=== PATIENT | female | born 1965 | race Caucasian/White ===

== ENCOUNTER → 2017-01-29 | Outpatient (CLI) | payer OTHER ==
[~2017-01-29] MED LIST: MULT-506 PO
--- NOTE | 2017-01-30 16:07 | MAMMOGRAPHY REPORT ---
BILATERAL DIGITAL SCREENING MAMMOGRAM TOMOSYNTHESIS WITH CAD: 01/29/2017 CLINICAL HISTORY: Routine screening examination. TECHNIQUE: Breast tomosynthesis in addition to standard 2D mammography was performed. Current study was also evaluated with a Computer Aided Detection (CAD) system. COMPARISON: Comparison is made to exams dated: 10/07/2015 mammogram, 09/17/2015 mammogram, 04/28/2014 m ammogram, 04/24/2013 mammogram, 11/04/2012 ultrasound, and 11/04/2012 mammogram - [facility] enter. BREAST COMPOSITION: There are scattered areas of fibroglandular density in both breasts. FINDINGS: The parenchymal pattern is similar compared to prior mammograms, with stable focal asymmet ry in the 12:00 posterior right breast. No developing mass, architectural distortion or cluster of s uspicious microcalcifications is seen in either breast. IMPRESSION: ACR BI-RADS CATEGORY 2: BENIGN There is no mammographic evidence of malignancy. A 1 year screening mammogram is recommended. The pa tient will receive written notification of the results. Approximately 10% of breast cancers are not detected with mammography. A negative mammographic report should not delay biopsy if a clinically suggestive mass is present. Katherine Odell M.D. ay/:01/29/2017 15:33:08 Floor Steward/Stewardess: Clarissa OCAMPO)(M), [facility] letter sent: Normal 1/2 BI-RADS Code: ACR BI-RADS Category 2: Benign
== END | disposition home or self-care (01) ==
LOC: C.MAMM 12:25
PROVIDERS: ATTEND Family Medicine
DX: Z12.31 Encounter for screening mammogram for malignant neoplasm of breast (principal)

== ENCOUNTER → 2018-01-14 | Outpatient (CLI) | payer OTHER ==
[2018-01-14 09:27] LABS: HEMATOCRIT 40.1 % (37-47); HEMOGLOBIN 13.9 g/dL (12.0-16.0); MEAN CELL VOLUME 97.1 fL (80-100); MEAN CORPUSCULAR HEMOGLOBIN 33.7 pg (25-34); MEAN CORPUSCULAR HGB CONC 34.7 g/dl (32-36); MEAN PLATELET VOLUME 11.2 fL (7.4-10.4); PLATELET COUNT 203 K/uL (130-400); RED CELL DISTRIBUTION WIDTH CV 12.4 % (11.5-14.5); RED CELL DISTRIBUTION WIDTH SD 43.7 fL (36.4-46.3); WHITE BLOOD COUNT 6.28 K/uL (4.8-10.8)
[2018-01-14 09:35] LABS: BLOOD UREA NITROGEN 19 mg/dl (7-18); CALCIUM 8.5 mg/dl (8.5-10.1); CARBON DIOXIDE 26 mmol/L (21-32); CHOLESTEROL 140 mg/dl (0-200); CREATININE 0.99 mg/dl (0.60-1.20); GLUCOSE 91 mg/dl (70-99); LDL CHOLESTEROL CALCULATED 61 mg/dl; SODIUM 138 mmol/L (136-145)
== END | disposition home or self-care (01) ==
LOC: C.LAB 07:43
PROVIDERS: ATTEND Family Medicine
DX: Z00.00 Encounter for general adult medical examination without abnormal findings (principal)

== ENCOUNTER 2023-01-29 06:27 | Observation (INO) ==
--- NOTE | 2022-12-11 14:10 | PAT Medication Instructions ---
Medication Instructions Date of Service December 11, 2022 Home Medications Medication Instructions Recorded propranolol 20 mg tablet 20 mg PO TID #270 tabs 11/30/22 Magnesium 1 tab PO HS calcium citrate 250 mg calcium-vitamin D3 5 mcg (200 unit) tablet (Citracal Regular) 1 tab PO QAM propranolol 20 mg tablet 20 mg PO TID ascorbic acid (vitamin C) 500 mg tablet (Vitamin C) 500 mg PO QAM cyanocobalamin (vitamin B-12) 500 mcg tablet 500 mcg PO QAM ibuprofen 200 mg tablet (Advil) 400 mg PO Q4H PRN ASK your surgeon for instructions ibuprofen 200 mg tablet (Advil) 400 mg PO Q4H PRN DO NOT take the morning of surgery calcium citrate 250 mg calcium-vitamin D3 5 mcg (200 unit) tablet (Citracal Regular) 1 tab PO QAM ascorbic acid (vitamin C) 500 mg tablet (Vitamin C) 500 mg PO QAM cyanocobalamin (vitamin B-12) 500 mcg tablet 500 mcg PO QAM Take morning of surgery With a small sip of water, OTHERWISE NOTHING TO EAT OR DRINK AFTER MIDNIGHT: propranolol 20 mg tablet 20 mg PO TID Take evening before surgery Magnesium 1 tab PO HS propranolol 20 mg tablet 20 mg PO TID Other Notes If you have any questions please call us at [phone] or [phone] or [phone] or [phone]
--- NOTE | 2022-12-15 11:55 | Anesthesiology Consultation ---
Date of Service December 15, 2022 Assessment & Plan (1) Encounter for pre-operative examination: - TSH and T4 resulted (T4 WNL, reduced TSH): workload note to Matt Walsh for continuity of care. - Case discussed in detail including patient reported symptoms above with Dr. Carballo, she advised patient is acceptable to proceed with surgery as scheduled at [facility] pending anesthesiologist evaluation am DOS and with plan for continuity of care workload note being sent to [facility]. - endocrinology 12/08/22 [place]: "...First seen 2 weeks ago, acute thyroiditis...In very late October developed diarrhea. That resolved but recurred, and then again resolved. By October 06 she was too tired to do much, and has been working from home since that time. Severe fatigue has been dominant as have low-grade fevers. High-dose Advil has been helpful. In addition she developed shortness of breath with any exertion, tachycardia with any exertion, 15 pound weight loss, insomnia. Last but not least primarily right thyroid pain radiating to the right jaw and ear, occasional left thyroid pain as well. On 11/21/22 TSH 0, free T4 3.3 mg/dL. CBC and chemistry profile relatively unremarkable. She had stool cultures, negative. Sheri-Sinclair virus testing consistent with remote infection. On 11/30/22 TSH still 0, free T4 now down to 2.4 mg/dL, free T3 still very high at 6.2 pg/mL. In addition TSI negative, but normal sed rate...Feeling much better...At night still wakes up with tachycardia. Therefore still hyperthyroid. Discussed the fact that she will likely become hypothyroid. Check free T4 and TSH around December 15. At the end of January she is scheduled for knee replacement surgery, it would likely not be necessary to postpone that..." - Outpatient joint assessment: Patient is currently scheduled for inpatient pathway. If re-evaluated pending system levels during current pandemic/surgeon requests outpatient pathway, patient states she prefers to stay overnight. Chart Review Chart Review: Acceptable Risk for Surgery and Patient seen in Pre Admission Testing Teaching & Discussion Pre-Anesthesia Teaching/Discussion Notes: Instructed NPO after midnight before surgery, except medications with 15 cc of water. Medication instructions provided according to the PAT guidelines. History Surgery Operation Date: 01/29/23 07:00 Proposed Procedures p Left Total Knee Arthroplasty - Shaun Perez MD Height/Weight Height: 5 ft 7.5 in Weight: 84.6 kg Allergies Allergy/AdvReac Type Severity Reaction Status Date / Time latex Allergy Unknown HIVES Verified 12/11/22 08:18 Penicillins Allergy Unknown Hives Verified 12/11/22 08:18 ropinirole [From Requip] AdvReac Severe Diarrhea Verified 12/11/22 08:18 Medications Home Medications Medication Instructions Recorded Confirmed Last Taken Magnesium 1 tab PO HS 09/10/18 12/11/22 09/16/18 08:00 calcium citrate 250 mg 1 tab PO QAM 09/10/18 12/11/22 09/16/18 08:00 calcium-vitamin D3 5 mcg (200 unit) tablet (Citracal Regular) propranolol 20 mg tablet 20 mg PO TID #270 tabs 11/30/22 12/11/22 Unknown ascorbic acid (vitamin C) 500 mg 500 mg PO QAM 12/11/22 12/11/22 Unknown tablet (Vitamin C) cyanocobalamin (vitamin B-12) 500 500 mcg PO QAM 12/11/22 12/11/22 Unknown mcg tablet ibuprofen 200 mg tablet (Advil) 400 mg PO Q4H PRN Pain 12/11/22 12/11/22 Unknown Wheeled Walker #1 ea 12/15/22 12/15/22 Unknown Past Medical History Medical History (Updated 12/15/22 @ 11:57 by Anaid Alcantar PA-C) History of COVID-19 x3, most recent Jan 2022 > never hospitalized -symptoms resolved Hyperthyroidism Palpitations HR changes often, can be 60-120 even at rest / propranolol for this / started when the viral disease symptoms started-seeing [facility] thyroiditis, associated slight left sided chest discomfort at night Viral disease of unknown cause, has been on going for approx 6 weeks, thyroiditis Patient denies h/o stroke, seizures, heart attack, heart failure, DM, HTN, blood clots or blood transfusions. Exercise / Class Metabolic Activity II 4-5 Yardwork/Stairs/Walk up hill (denies chest discomfort or shortness of breath with 1 FOS; notes occasional left sided chest discomfort associated with palpitations since thyroiditis, notes improvement on beta giovany, otherwise no change in symptoms) Past Family History Family History Other Adopted Past Surgical History Surgical History H/O foot surgery LEFT FOOT CYST REMOVAL History of arthroscopy bilat knees History of cholecystectomy History of colonoscopy Past Anesthesia History No Hx of Anesthesia Complications FHX unknown. History of PONV No Hx of PONV and No Hx of Motion Sickness Social History Smoking Status: Former smoker Do You Dip or Chew Tobacco: No Smoking End Date: 2006 Hx Alcohol Use: Yes Alcohol type: wine alcohol intake frequency: 0-2 drinks per day Alcohol Intake Frequency Comment: 1 per day Hx Substance Use: No substance use type: does not use Review of Systems Patient denies shortness of breath, dyspnea on exertion, snoring, witnessed apneas, reflux, fever, chills, cough, or wheezing. Physical Exam Vital Signs Vitals BP 111/75 P 62 TEMP 97.8 SP02 97% on RA RESP 18 Physical Full cervical extension range of motion without pain TMD 3.5 finger breadths Mallampati Score 2 Dentition: two permanent bridges; denies chipped or loose teeth, caps/crowns, or implants Lungs: normal respiratory effort. Good air movement, clear throughout to auscultation, no adventitious breath sounds Cardiac: regular rate and rhythm, no murmurs noted Carotid arteries: negative bruit bilat Lab Results Anesthesia Preop Results Results Anesthesia Widget: WBC 7.92 K/ul (4.8-10.8) 12/15/22 Hgb 13.9 g/dl (12.0-16.0) 12/15/22 Hct 39.8 % (37.0-47.0) 12/15/22 Plt 285 K/uL (130-400) 12/15/22 Na 140 mmol/L (136-145) 12/15/22 K 4.0 mmol/L (3.5-5.1) 12/15/22 Cl 106 mmol/L (98-107) 12/15/22 CO2 28 mmol/L (21-32) 12/15/22 BUN 13 mg/dl (6-23) 12/15/22 Creat 0.80 mg/dl (0.6-1.2) 12/15/22 Glucose Level 101 mg/dl (70-99(Fasting)) H 12/15/22 PT 11.2 Seconds (9.0-12.0) 12/15/22 PTT 24.2 Seconds (21.0-31.0) 12/15/22 INR 1.0 (0.9-1.1) 12/15/22 TSH < 0.010 uIu/ml (0.300-4.500) L 12/15/22 Free T4 1.06 ng/dl (0.61-1.60) 12/15/22 HA1c 5.4 % (4.5-5.6) 11/09/22 Blood Type A Negative 12/15/22 Antibody Screen NEGATIVE 12/15/22 Testing Electrocardiogram Date: 12/15/22 NSR, rate 62 bpm Nonspecific T wave abnormality Chest X-Ray Date: 12/15/22 No acute process COVID-19 Risk Screen Screening Information COVID-19 Screen Date: 12/15/22 Exposure 21 Days Family/Household +COVID Last 21 Days: No Exposure 10 Days Any COVID Exposure Last 10 Days: No Symptoms Last 10 Days Experienced COVID Sx Last 10 Days: No + COVID 0-90 Days COVID + in Last 0-90 Days: No
--- NOTE | 2023-01-25 14:25 | History & Physical Report ---
Date of Service January 25, 2023 Assessment & Plan (1) Osteoarthritis of left knee: 57-year-old female with advanced left knee tricompartment DJD. She has failed conservative treatment. She would like to proceed with knee replacement. She was previously scheduled for right knee replacement but had to put it on hold due to some personal issues. Working to proceed with left total knee replacement for the risks Mente this procedure explained the patient include but not limited to DVT PE infection neurological and vascular bleeding palm pain limb range of motion test is fairly of symptoms incomplete relief of symptoms need for further surgery in the future. The patient understands and desires to proceed. Informed consent is obtained. She is a plan on stay in the hospital overnight. Likely discharge postop day 1 after therapy. History of Present Illness Chief Complaint: . Left knee pain. Primary Care Provider: Trung Cagle DO . Patient is a 57-year-old female who presents for surgical treatment of her left knee. She has been a long-term patient of our practice and used to work at [employer] but now works for [employer]. Got a long history of knee problems and had a left knee scope with Dr. Encinas back in 2014 and the right one done 2019. The right knee seem to get better but the left knee really never got any better. She been through extensive conservative treatment including steroid shots and viscosupplementation which become less successful over time. Describes global pain. The more she is up on it the more it hurts. She now would like to have her left knee replaced. She was actually scheduled for knee replaced about a year ago but had to put this on hold for personal reasons. Of note, the patient does have a relatively recent history of some thyroiditis followed by Dr. Walsh. Allergies Allergy/AdvReac Type Severity Reaction Status Date / Time latex Allergy Unknown HIVES Verified 12/11/22 08:18 Penicillins Allergy Unknown Hives Verified 12/11/22 08:18 ropinirole [From Requip] AdvReac Severe Diarrhea Verified 12/11/22 08:18 Home Medications Medication Instructions Recorded Confirmed Type Magnesium 1 tab PO HS 09/10/18 12/11/22 History calcium citrate 250 mg 1 tab PO QAM 09/10/18 12/11/22 History calcium-vitamin D3 5 mcg (200 unit) tablet (Citracal Regular) propranolol 20 mg tablet 20 mg PO TID #270 tabs 11/30/22 12/11/22 Rx ascorbic acid (vitamin C) 500 mg 500 mg PO QAM 12/11/22 12/11/22 History tablet (Vitamin C) cyanocobalamin (vitamin B-12) 500 500 mcg PO QAM 12/11/22 12/11/22 History mcg tablet ibuprofen 200 mg tablet (Advil) 400 mg PO Q4H PRN Pain 12/11/22 12/11/22 History Wheeled Walker #1 ea 12/15/22 12/15/22 Rx diclofenac sodium 75 mg 75 mg PO BID PRN pain #60 tabs 12/19/22 Rx tablet,delayed release Past Med/Surg History Medical History History of COVID-19 x3, most recent Jan 2022 > never hospitalized -symptoms resolved Hyperthyroidism Palpitations HR changes often, can be 60-120 even at rest / propranolol for this / started when the viral disease symptoms started-seeing [facility] thyroiditis, associated slight left sided chest discomfort at night Viral disease of unknown cause, has been on going for approx 6 weeks, thyroiditis Surgical History H/O foot surgery LEFT FOOT CYST REMOVAL History of arthroscopy bilat knees History of cholecystectomy History of colonoscopy Family History Other Adopted Social History Smoking Status: Former smoker Second Hand Exposure: No; Do You Dip or Chew Tobacco: No; Hx Alcohol Use: Yes Alcohol type: wine Hx Substance Use: No Preferred Language: Portuguese Communication Ability: Effective Manager Code Required: No Beliefs That Will Affect Care: None Current Living Situation: Spouse Feels Safe at Home: Yes Assistive Devices: None Review of Systems All systems reviewed & are unremarkable except as noted in HPI & below. Physical Exam . Physical examination reveals a pleasant healthy appearing middle-aged female. Her HEENT exam is benign. Neck supple no lymphadenopathy lungs good a uscultation. Heart is regular rate and rhythm. Abdomen soft nontender nondistended extremities grossly neuro vas intact except as follows. Examination of the left knee reveals patient walks independently. Fairly neutral alignment to her knee. Small to moderate-sized knee joint effusion. Range of motion is 5 degrees short of full extension to 120 degrees of flexion. There is no instability. No pain with hip motion. Constitutional WD/WN, vitals as above Respiratory normal respiratory effort, lungs clear to auscultation Cardiovascular RRR, no murmur, no edema Gastrointestinal (Abdomen) normal bowel sounds, soft, nontender, no hepatosplenomegaly Results & Data Results & Data Laboratory Results . Diagnostic Findings . X-rays of the left knee from October 03, 20192002 were reviewed. Shows advanced left knee tricompartment DJD. She got near complete loss of medial joint space. She has a little bit of tibiofemoral subluxation. She got some lateral compartment disease as well. [facility] Care Time/CCT Total # of Minutes Spent Total Time Spent with Patient: Total time spent is greater than 50% in coordination of care (as documented) at patient's floor/unit and/or counseling patient: Coding Level of Care Code None Diagnoses Osteoarthritis of left knee M17.12
[~2023-01-29 06:27] MED LIST changes: +ACETAMINOPHEN 500 MG TAB PO SCH; +BUPIVACAINE LIPOSOME/PF 266 MG, BUPIVACAINE/EPINEPHRINE 50 ML, SODIUM CHLORIDE 0.9% PF ... INFIL SCH; +CeleBREX 200 MG CAP PO SCH; +FAMOTIDINE 20 MG TAB PO SCH; +LR 15ML/HR IV SCH; +LR 500ML BOLUS, THEN 15ML/HR IV SCH; +METOCLOPRAMIDE HCL 10 MG TABLET PO SCH; -MULT-506 PO; +SODIUM CHLORIDE 0.9% 1,000 ML IV SCH; +Scopolamine 1 MG TDSY TD SCH; +TRANEXAMIC ACID 1,000 MG **IV Intra-op IV SCH; +ceFAZolin 2000MG 2,000 MG/15 ML SYR IV SCH; +dexAMETHasone**PF** 10 MG/ML VIAL IV SCH
[2023-01-29] MEDS ORDERED: ROPIVACAINE 0.5% 5 MG/ML 30 ML VIAL ONE (06:33)
[2023-01-29] MEDS ORDERED: EPINEPHrine INJ 1 MG/ML AMP ONE (06:33)
[2023-01-29] MEDS ORDERED: BUPIVACAINE 0.5 % 5 MG/1 ML PF 10ML VIAL ONE (06:33)
--- NOTE | 2023-01-29 06:52 | History & Physical Bridge Note ---
Date of Service January 29, 2023 History & Physical Bridge Note I have examined the patient, reviewed the History & Physical and in the interval since the performance of the History & Physical I have noted the following changes of clinical significance: no changes noted
[2023-01-29] MEDS ORDERED: MIDAZOLAM HCL 1 MG/ML 2ML VIAL ONE ×2 (07:28→09:26)
[2023-01-29] MEDS ORDERED: fentaNYL citrate PF 100 MCG/2 ML VIAL ONE (07:29)
[2023-01-29] MEDS ORDERED: BUPIVACAINE/EPINEPHRINE 0.25% 1:200,000 30 ML VIAL ONE (08:49)
[2023-01-29] MEDS ORDERED: SODIUM CHLORIDE 0.9% PF 50 ML VIAL ONE (08:49)
[2023-01-29] MEDS ORDERED: BUPIVACAINE LIPOSOME 1.3% 266 MG/20 ML VIAL ONE (08:49)
[2023-01-29] MEDS ORDERED: PROPOFOL IV EMULSION 10 MG/ML 20 ML VIAL IV ONE (09:02)
--- NOTE | 2023-01-29 10:39 | Operative Report ---
[facility] Post Operative Report Pre & Post Diagnosis Operation Date: 01/29/23 08:40 Pre-Op Diagnosis: Left Knee Degenerative Joint Disease Post-Op Diagnosis: Left Knee Degenerative Joint Disease I identified the patient and participated in the time-out.: Yes Procedure Operation Date: 01/29/23 08:40 Actual Procedures p Left Total Knee Arthroplasty(Left) - Shaun Perez MD Surgeon Shaun Perez MD Rn Progressive Care Jordan Swenson PA-C Estimated Blood Loss 50 Findings Consistent with Post-Op Diagnosis Operative findings were advanced left knee tricompartment DJD. She had extensive grade 4 idje-ht-soap disease in all 3 compartments. Fairly significant effusion without blood-tinged to it. Osteophytes in all 3 compartments. Specimens Left knee sent for pathology Anesthesia Type Spinal MAC Complications none Disposition Accompanied Patient To Recovery: No Indications Patient is a 57-year-old very active female has had a long history of knee problems. She is under went both knee arthroscopies in the past. She has been through extensive conservative treatment for arthritis over the years which became less successful. She was actually scheduled for knee replacement about a year ago but had to cancel for personal reasons. She now presents for surgical treatment. Description of Procedure Operative implants consist of: 1 Biomet Vanguard size 65 left posterior stabilized femoral component. 2. Biomet size 71 tibial tray. 3. 12 mm posterior stabilized polyethylene insert. 4. 28 x 8 all poly patella. The patient was taken the operating, identified, placed on the operating table supine position but all contractors were properly padded. IV antibiotic 5 by anesthesia team. Spinal anesthetic and adductor canal block had provided in the holding area. Bell catheter was placed in sterile fashion to the left thigh tent was then placed in left lower extremities and prepped and draped in usual sterile fashion. The left leg was elevated exsanguinated with use of an Esmarch and the tourniquet was placed at 300 mmHg. An anterior posterior left knee was then performed to longitudinal incision centered over the patella. Sharp dissection was carried through subcutaneous tissue down the extensor mechanism. A medial parapatellar arthrotomy incision was made. Some subperiosteal dissection was carried out medially. The fat pad was resected from Neath patella tendon. Lateral patellofemoral ligament was released. Patella subluxated laterally and the knee was flexed. The osteophytes taken on distal femur. The ACL and PCL were then released from distal femur the tibia subluxated anteriorly. The external tibial alignment jig was then placed in the interface the tibia and adjusted 14 mm medially. Proximal tibial cut was made remove about a millimeter or 2 of bone from most deficient aspect medial tibial plateau. Some osteophytes taken off medially. The tibia was sized to a size 71. Attention drawn the femur. The distal femur examined the sharp drop with intramedullary canal was suction. A left 5 degree valgus cutting guide was placed. Distal femoral cutting block was pinned in place. Distal femoral cut was made to take an additional 3 mm of bone off distal femur. The femur was then sized to a size 65. The AP cutting block was pinned parallel to the epicondylar axis which was 4 degrees of external rotation. The anterior cut, anterior chamfer, posterior cut, posterior chamfer cuts were made. The box cutting guide was placed in a just slight lateral and the box cut was made. The knee was flexed. The remnants of the medial and lateral menisci were excised. The osteophytes were taken off the posterior aspect the femur. A trial femoral component was placed. The tibial tray was pinned in maximum external rotation and the drill and stem punch were used to create defect in proximal tibia for the tibial tray. The knee was then trialed and the 12 mm insert fit most appropriately. Attention drawn the patella. The patella was cleaned of all soft tissues. Patella thickness measured 22 mm in thickness was cut down to 13. It was sized to a size 28 patella. The lug holes were drilled for the 28 patella. The lateral osteophytes removed. Patella button was placed. Knee was taken through range of motion patella tracked nicely with no thumbs test. Attention drawn to placing the permanent components. All trial components were removed. Bone plug was placed in the distal femur limit blood loss. Double batch Palacos G cement was mixed. Biomet Mixbookguard size 65 left posterior stabilized femoral component, size 71 tibial tray, a 12 mm post stabilized polyethylene insert, and 28 x 8 all Paller patella then cemented in place. Knee was brought out into full extension till cement hardened. Final cement check was then performed. Pericapsular tissues were injected with a total of 100 cc of combination of 20 cc of Exparel, 30 cc normal saline, 50 cc of quarter percent Marcaine with epinephrine. Patient did receive 1 g tranexamic acid. The tourniquet was then let down for final tourniquet time 53 minutes. Hemostasis assured use electrocautery. Extensor mechanism then closed with combination 1 PDS suture #1 Vicryl suture in a [id number] fashion. Extensor mechanism checked found to be intact the subcutaneous tissues then closed with 2 Dexon suture in a buried interrupted fashion skin was closed skin kam. Leg was then cleaned and dried and sterile dressed with Xeroform, 4 fours, sterile cast padding, Hernan bandage were applied. Patient then transferred to the recovery room in stable condition. Patient tolerated procedure well no complications. Jordan Swenson, my physician education assistant, was present for the entire procedure. His assistance was essential and required for appropriate patient positioning, prepping and draping, surgical exposure, performing the technical details of the operation, placement the implants, closure of the wound, and placement of the sterile bandage. I attest to the content of the Intraoperative Record and any orders documented therein. Any exceptions are noted below.
--- NOTE | 2023-01-29 10:54 | XRay Report ---
TWO VIEWS LEFT KNEE CLINICAL HISTORY: Postoperative examination. FINDINGS: AP and crosstable lateral portable views of the left knee are obtained. A left knee arthrop lasty is in near anatomic alignment. There has been undersurface remodeling of the patella. No acute fracture is seen. There are expected postoperative changes around the knee including skin clips, soft tissue edema, and subcutaneous gas. IMPRESSION: Expected postoperative changes status post left knee arthroplasty. No acute fracture is s een. ACT 112: Negative or not required by law. Electronically signed by: Deacon Alvarado M.D. 01/29/2023 10:53 AM
[2023-01-29] MEDS ORDERED: ePHEDrine sulfate 50 MG/ML AMP IV PRN (11:10)
[2023-01-29] MEDS ORDERED: ATROPINE SULFATE 0.1 MG/ML 10ML SYR IV PRN (11:10)
[2023-01-29] MEDS ORDERED: bisacodyL 10 MG SUPP PR PRN (11:46)
[2023-01-29] MEDS ORDERED: ONDANSETRON INJ 2 MG/ML 2 ML VIAL IV PRN (11:46)
[2023-01-29] MEDS ORDERED: MAGNESIUM HYDROXIDE SUSP 30 ML UDC PO PRN (11:46)
[2023-01-29] MEDS ORDERED: NALOXONE HCL 0.4 MG/1 ML VIAL/CARP IV PRN (11:46)
[2023-01-29] MEDS ORDERED: ALUMINUM/MAGNESIUM SUSP 30 ML UDC PO PRN (11:46)
[2023-01-29] MEDS ORDERED: HYDROmorphone INJ 0.5 MG/0.5 ML SYR IV PRN (11:46)
[2023-01-29] MEDS ORDERED: METOCLOPRAMIDE HCL INJ 5 MG/ML 2 ML VIAL IV PRN (11:46)
[2023-01-29] MEDS ORDERED: diphenhydrAMINE Capsule 25 MG CAP PO PRN (11:46)
--- NOTE | 2023-01-29 11:58 | Anesthesiology Progress Note ---
Date of Service January 29, 2023 Anesthesia Post Procedure Vital Signs Vital Signs: Temp Pulse Pulse Resp BP Pulse Ox O2 Del Method 01/29/23 11:40 36.5 C 67 16 120/81 100 Room Air 01/29/23 11:30 72 16 138/78 99 Room Air 01/29/23 11:20 36.4 C L 73 15 141/91 H 99 Room Air 01/29/23 11:10 73 15 120/83 99 Room Air 01/29/23 11:00 63 16 128/78 100 Room Air 01/29/23 10:50 74 16 131/51 L 100 Room Air 01/29/23 10:40 91 H 18 121/79 100 Room Air 01/29/23 10:34 36.1 C L 97 H 14 121/68 98 Oxymask 01/29/23 06:52 36.9 C 82 20 144/95 H 98 Room Air O2 Flow Rate 01/29/23 11:40 01/29/23 11:30 01/29/23 11:20 01/29/23 11:10 01/29/23 11:00 01/29/23 10:50 01/29/23 10:40 01/29/23 10:34 6 01/29/23 06:52 Pain Intensity Left Knee: Pain Intensity: 5 Transfer of Care Handoff Completed per policy Notes Mental Status: alert / awake / arousable Patient Amnestic to Procedure: Yes Nausea / Vomiting: adequately controlled Pain: adequately controlled Airway Patency, RR, SpO2: stable & adequate BP & HR: stable & adequate Hydration State: stable & adequate Neuraxial Anesthesia: was administered and sensory block is resolving Anesthetic Complications: no major complications apparent
[2023-01-29] MEDS: KETOROLAC 30 MG/ML VIAL IV SCH ×3 (12:12→23:38)
[2023-01-29] MEDS: SODIUM CHLORIDE 0.9% 1000ML 1,000 ML IV SCH ×2 (12:12→21:49)
[2023-01-29] MEDS: ACETAMINOPHEN 500 MG TAB PO SCH ×2 (14:05→19:43)
[2023-01-29] MEDS: oxyCODONE HCL IR 5 MG TAB (IMMEDIATE RELEASE) PO PRN ×2 (14:55→17:04)
[2023-01-29] MEDS: Scopolamine CHECK PATCH PLACEMENT SCH ×2 (14:56→23:38)
[2023-01-29] MEDS ORDERED: TRANEXAMIC ACID / 0.7% NACL 1,000 MG/100 ML BAG IV SCH (16:30)
[2023-01-29] MEDS: ceFAZolin 2000MG 2,000 MG/15 ML SYR IV SCH (17:11)
[2023-01-29] MEDS: DOCUSATE SODIUM 100 MG CAP PO SCH (19:43)
[2023-01-29] MEDS: ASPIRIN 81 MG ECTAB PO SCH (19:44)
[2023-01-29] MEDS: SENNA 8.6 MG TAB PO SCH (19:45)
[2023-01-29] MEDS ORDERED: SENNA 8.6 MG TAB PO SCH (21:00)
[2023-01-29] MEDS ORDERED: MAGNESIUM OXIDE 400 MG TAB PO SCH (21:00)
[2023-01-30] MEDS: ceFAZolin 2000MG 2,000 MG/15 ML SYR IV SCH (02:06)
[2023-01-30] MEDS: KETOROLAC 30 MG/ML VIAL IV SCH (05:16)
[2023-01-30 06:20] LABS: Hematocrit (blood only) 36.5 % (37.0-47.0); Hemoglobin 12.6 g/dl (12.0-16.0); Mean Corpuscular Hemoglobin 32.1 pg (25.0-34.0); Mean Corpuscular Hgb Conc 34.5 g/dL (32.0-36.0); Mean Corpuscular Volume 92.9 fL (80.0-100.0); Mean Platelet Volume 10.9 fL (9.4-12.4); Platelet Count 227 K/uL (130-400); RDW Coefficient of Variation 13.3 % (11.5-14.5); RDW Standard Deviation 45.5 fL (36.4-46.3); Red Blood Count 3.93 M/uL (4.20-5.40)
[2023-01-30 06:32] LABS: BUN Creatinine Ratio 14.7 (10-20); Est GFR (African American) 77.1 ml/min; Est GFR (Non-African American) 66.5 ml/min; Potassium 3.5 mmol/L (3.5-5.1)
[2023-01-30] MEDS ORDERED: dexAMETHasone 10 MG in SYRINGE 0 ML IV SCH (08:00)
[2023-01-30 08:08] VITALS: BP 148/92; PULSE 74; TEMP 98.4; O2SAT 98
[2023-01-30] MEDS: oxyCODONE HCL IR 5 MG TAB (IMMEDIATE RELEASE) PO PRN (08:15)
[2023-01-30] MEDS: Scopolamine CHECK PATCH PLACEMENT SCH (08:17)
[2023-01-30] MEDS: ACETAMINOPHEN 500 MG TAB PO SCH (08:20)
[2023-01-30] MEDS: SENNA 8.6 MG TAB PO SCH (08:21)
[2023-01-30] MEDS: ASPIRIN 81 MG ECTAB PO SCH (08:22)
[2023-01-30] MEDS: DOCUSATE SODIUM 100 MG CAP PO SCH (08:22)
[2023-01-30] MEDS ORDERED: ASCORBIC ACID 500 MG TAB PO SCH (09:00)
[2023-01-30] MEDS ORDERED: CALCIUM 600MG + VIT D 400 IU TAB PO SCH (09:00)
[2023-01-30] MEDS ORDERED: MULTIVITAMIN TAB PO SCH (09:00)
[2023-01-30] MEDS ORDERED: CYANOCOBALAMIN (B-12) 500 MCG TABLET PO SCH (09:00)
--- NOTE | 2023-01-30 11:22 | Orthopedic Progress Note ---
Date of Service January 30, 2023 Assessment & Plan (1) Status post left knee replacement: 57-year-old female postop day 1 from left knee replacement doing pretty well. Pain is controlled. She is neurologically intact. Plan: 1. DVT prophylaxis including thigh-high teds, SCDs, aspirin twice a day. 2. Pain control doing okay with current pain regimen. 3. PT OT. Weight-bear as tolerated left total knee protocol. 4. Disposition plan is to discharge her to home with home health if she does okay in therapy today. Subjective . 57-year-old female postop day 1 from left knee replacement. She is doing pretty well. Had a little bit of a rough evening and then got a little bit better bait pain control. She is doing quite well this morning. No chest pain or shortness of breath. Not feeling dizzy or lightheaded. Hoping to go home. Review of Systems All systems reviewed & are unremarkable except as noted in HPI & below. Physical Exam . Physical examination was a pleasant middle-age female. Sitting up in her bed and looks pretty comfortable this morning. Examination left leg reveals dressing clean dry and intact. She can dorsiflex and plantarflex her foot appropriately. She cannot quite do a straight leg raise. Respiratory normal respiratory effort, lungs clear to auscultation Gastrointestinal (Abdomen) normal bowel sounds, soft, nontender, no hepatosplenomegaly Results & Data Results & Data Laboratory Results . Hemoglobin is 12.6. Hematocrit 36.5. Electrolytes are stable. Diagnostic Findings . PG Care Time/CCT Total # of Minutes Spent Total Time Spent with Patient: Total time spent is greater than 50% in coordination of care (as documented) at patient's floor/unit and/or counseling patient: Coding Level of Care Code 72472 Post Operative Follow-Up Diagnoses Status post left knee replacement Z96.652
== END 2023-01-30 11:41 | disposition home health service (06) ==
LOC: ASU 06:27 → 3E 06:27